=== PATIENT | female | born 1960 | race Caucasian/White ===

== ENCOUNTER 2024-10-31 11:43 | Emergency (ER) | payer OTHER ==
[2024-10-31 11:50] VITALS: TEMP 98.1
[2024-10-31] MEDS: HYDROmorphone 2 MG/ML 1 ML SYRINGE IM STA (12:07)
--- NOTE | 2024-10-31 12:15 | ED ---
Fall HPI - General Chief Complaint: Fall Stated Complaint: Fall Time Seen by Provider: 10/31/24 11:55 Source: patient, EMS Mode of arrival: EMS - History of Present Illness Initial Comments: 64-year-old female presented chief complaint of right shoulder injury. Patient was walking in a parking lot and was stepping over uneven slab of concrete when she tripped. She landed on the arm in flexion. She is unable to move the arm at the level of the shoulder. She is able to move her fingers and wrist. No discoloration or swelling of the arm. She was brought in by EMS. Denies head injury, loss of consciousness, or use of blood thinners. - Related Data Previous Rx's Medication Instructions Recorded HYDROcodone/APAP 7.5-325MG [[place] 1 tab PO Q6HR PRN 3 Days #12 tab 10/31/24 7.5-325] Allergies Allergy/AdvReac Type Severity Reaction Status Date / Time No Known Allergies Allergy Verified 10/31/24 11:50 Review of Systems ROS Statement: Those systems with pertinent positive or pertinent negative responses have been documented in the HPI. ROS Other: All systems not noted in ROS Statement are negative. Past Medical History Past Medical History: No Reported History Additional Past Medical History / Comment(s): Broke L foot and diveritculitis Additional Past Surgical History / Comment(s): tubes tied 1989 Smoking Status: Former smoker Past Alcohol Use History: Occasional Past Drug Use History: Marijuana General Exam Limitations: no limitations General appearance: alert, in no apparent distress Head exam: Present: atraumatic, normocephalic, normal inspection Eye exam: Present: normal appearance, EOMI Neck exam: Present: normal inspection. Absent: meningismus Respiratory exam: Absent: respiratory distress Cardiovascular Exam: Present: regular rate Right Shoulder Exam: Present: tenderness, deformity. Absent: full ROM Vascular: Absent: vascular compromise Neurological exam: Present: alert, oriented X3 Expanded Eye Response: (4) open spontaneously Motor Response: (6) obeys commands Verbal Response: (5) oriented Catrina Total: 15 Psychiatric exam: Present: normal affect, normal mood Skin exam: Present: warm, dry, normal color Course Vital Signs 10/31/24 10/31/24 11:46 13:13 Temperature 98.1 F Pulse Rate 73 89 Respiratory 18 16 Rate Blood Pressure 170/99 130/80 O2 Sat by Pulse 95 98 Oximetry Medical Decision Making - Medical Decision Making Was pt. sent in by a medical professional or institution (, [facility], [facility], urgent care, hospital, or skilled nursing...) When possible be specific @ -No Did you speak to anyone other than the patient for history (EMS, parent, family, police, friend...)? What history was obtained from this source @ -Daughter Did you review nursing and triage notes (agree or disagree)? Why? @ -I reviewed and agree with nursing and triage notes Were old charts reviewed (outside hosp., previous admission, EMS record, old EKG, old radiological studies, urgent care reports/EKG's, skilled nursing records)? Report findings @ -No old charts were reviewed Differential Diagnosis (chest pain, altered mental status, abdominal pain women, abdominal pain men, vaginal bleeding, weakness, fever, dyspnea, syncope, headache, dizziness, GI bleed, back pain, seizure, CVA, palpatations, mental health, musculoskeletal)? @ -Differential Musculoskeletal Muscular strain, contusion, ligament sprain, fracture, arthritis, septic arthritis, bursitis, cellulitis, muscle spasm, nerve compression, DVT, arterial occlusion, herpes zoster, electrolyte abnormality, tumor.... This is not meant to be in all inclusive list EKG interpreted by me (3pts min.). @ -As above X-rays interpreted by me (1pt min.). @ -X-ray shows acute mildly displaced fracture of the proximal humeral neck extending into the greater tuberosity CT interpreted by me (1pt min.). @ -None done U/S interpreted by me (1pt. min.). @ -None done What testing was considered but not performed or refused? (CT, X-rays, U/S, labs)? Why? @ -None What meds were considered but not given or refused? Why? @ -None Did you discuss the management of the patient with other professionals (professionals i.e. [facility], [facility], lab, RT, psych nurse, healthcare social worker, home sales service professional, teacher, state patrol officer, casework specialist)? Give summary @ -No Was smoking cessation discussed for >3mins.? @ -No Was critical care preformed (if so, how long)? @ -No Were there social determinants of health that impacted care today? How? (Homelessness, low income, unemployed, alcoholism, drug addiction, transportation, low edu. Level, literacy, decrease access to med. care, longterm, rehab)? @ -No Was there de-escalation of care discussed even if they declined (Discuss DNR or withdrawal of care, Hospice)? DNR status @ -No What co-morbidities impacted this encounter? (DM, HTN, Smoking, COPD, CAD, Cancer, CVA, ARF, Chemo, Hep., AIDS, mental health diagnosis, sleep apnea, morbid obesity)? @ -None Was patient admitted / discharged? Hospital course, mention meds given and route, prescriptions, significant lab abnormalities, going to OR and other pertinent info. @ -64-year-old female presenting with chief complaint of right shoulder injury. She tripped on uneven concrete in a parking lot landing on her shoulder in flexion. A makeshift splint was applied in the field by EMS. History and physical examination are conducted. The patient is neurovascularly intact. She is provided with pain medication. X-ray positive for acute mildly displaced fracture of the proximal humeral neck extending into the greater tuberosity. Patient is placed in an immobilizer and educated on today's findings. She will follow-up with orthopedics. Provided with pain medication for home. Follow-up with PCP. Report back to ER with any new or worsening symptoms. Discussed return parameters and answered all questions. Patient conveyed verbal understanding and agreed to the plan. I discussed this case in detail with my attending Dr. Briseno Undiagnosed new problem with uncertain prognosis? @ -No Drug Therapy requiring intensive monitoring for toxicity (Heparin, Nitro, Insulin, Cardizem)? @ -No Were any procedures done? @ -No Diagnosis/symptom? @ -Proximal humerus fracture Acute, or Chronic, or Acute on Chronic? @ -Acute Uncomplicated (without systemic symptoms) or Complicated (systemic symptoms)? @ -Uncomplicated Side effects of treatment? @ -No Exacerbation, Progression, or Severe Exacerbation? @ -No Poses a threat to life or bodily function? How? (Chest pain, [place], [place], pneumonia, PE, COPD, DKA, ARF, appy, cholecystitis, CVA, Diverticulitis, Homicidal, Suicidal, threat to staff... and all critical care pts) @ -Potentially if the patient does not follow up with orthopedics and follow their guidelines Disposition Clinical Impression: Fracture of neck of humerus Disposition: HOME SELF-CARE Condition: Good Instructions (If sedation given, give patient instructions): Proximal Humerus Fracture (ED) Additional Instructions: Follow-up with orthopedics. Report back to ER with any new or worsening symptoms. Keep your sling on at all times. Take pain medication as prescribed. Prescriptions: HYDROcodone/APAP 7.5-325MG [[place] 7.5-325] 1 tab PO Q6HR PRN 3 Days #12 tab PRN Reason: Pain Is patient prescribed a controlled substance at d/c from ED?: Yes When asked, does pt state using other controlled substances?: No If prescribed controlled substance>3 days was MAPS reviewed?: Prescribed <3 Days If opioid is for acute pain is fill amount 7 days or less?: Yes Referrals: Maribel Pete MD [Primary Care Provider] - 1-2 days Kenji Collazo MD [STAFF PHYSICIAN] - 1-2 days Time of Disposition: 12:48
--- NOTE | 2024-10-31 12:30 | XR ---
EXAMINATION TYPE: XR shoulder complete RT DATE OF EXAM: 10/31/2024 12:18 PM INDICATION: Patient age:Female; 64 years old; Reason for study: injury; pain COMPARISON: None TECHNIQUE: The right shoulder was examined in AP, internally rotated and scapular Y projections. . FINDINGS: Acute mildly displaced fracture of the proximal humeral neck extending into the greater tuberosity. N o dislocation. Overlying soft tissue edema. AC joint arthropathy. The remaining portions of the visua lized chest are unremarkable. IMPRESSION: Acute mildly displaced fracture of the proximal humeral neck extending into the greater tuberosity. [facility], , 10/31/2024 12:28 PM
[2024-10-31 13:15] VITALS: BP 130/80; PULSE 89; RESP 16
[2024-10-31] MEDS: ACET/COD 300 MG/30 MG STARTER PACK 6 TAB BTL PO STA (13:19)
== END 2024-10-31 13:14 | disposition home or self-care (01) ==
LOC: EC 11:43
DX: S42.211A Unspecified displaced fracture of surgical neck of right humerus, initial encounter for closed fracture (principal); Z87.891 Personal history of nicotine dependence; W01.0XXA Fall on same level from slipping, tripping and stumbling without subsequent striking against object, initial encounter; Y92.481 Parking lot as the place of occurrence of the external cause; Y93.01 Activity, walking, marching and hiking
CPT/HCPCS: 73030; 99283; 96372; J1171